=== PATIENT | male | born 1940 | race Caucasian/White ===

== ENCOUNTER 2017-02-04 11:42 | Outpatient (CLI) | payer MEDICARE, OTHER ==
[2016-02-17 19:11] VITALS: BP 97/65
== END 2017-02-04 11:43 ==
LOC: CARD 11:42
PROVIDERS: ATTEND Internal Medicine Cardiovascular Disease
DX: I25.10 Atherosclerotic heart disease of native coronary artery without angina pectoris (principal); E78.5 Hyperlipidemia, unspecified; I10 Essential (primary) hypertension; G47.30 Sleep apnea, unspecified
CPT/HCPCS: G0463

== ENCOUNTER 2017-10-04 21:12 | Emergency (ER) | payer MEDICARE, OTHER ==
--- NOTE | 2017-10-04 21:28 | ED Physician Documentation ---
General Adult - HISTORIAN Historian: patient - HPI Chief Complaint: General Adult (low BP) Additional Information: Patient states that this AM he started to not feel well. Has had a mild headache. Patient was seen by his son and had his BP checked and it was low in the 60-70 systolic. Has been having some mild lightheadness. Is on BP medication. No chest pain or pressure noted. Onset: hours (This AM) Timing: still present Further Comments: no - ROS CONST: denies: fever, chills EYES/ENT: none CVS/RESP: none MS/SKIN/LYMPH: denies: calf pain NEURO/PSYCH: headache, dizziness. denies: fainting, tingling, numbness, difficulty walking - PAST HX Past History: COPD, hypertension, other (hypothyroidism) Other History: other (cerebral palsy, Rectal cancer, KRISHNA, CAD) Surgeries/Procedures: other (AAA repair) Immunizations: referred to PCP Allergies/Adverse Reactions: Allergies Allergy/AdvReac Type Severity Reaction Status Date / Time morphine Allergy Verified 10/04/17 21:32 Home Medications: Ambulatory Orders Medication Instructions Recorded Levothyroxine Sodium [Synthroid] 25 mcg PO 0700 02/17/16 Montelukast Sodium [Singulair] 10 mg PO HS 02/17/16 Ondansetron HCl Rapdis [Zofran Odt] 4 mg PO Q6 PRN #30 tab 02/17/16 Primidone [Mysoline] 50 mg PO TID 02/17/16 - SOCIAL HX Smoking History: non-smoker Alcohol Use: none Drug Use: none - FAMILY HX Family History: No - VITAL SIGNS Vital Signs: Vital Signs Temp Pulse Resp BP Pulse Ox 97/65 02/17/16 19:07 - REVIEWED ASSESSMENTS Nursing Assessment Reviewed: Yes Vitals Reviewed: Yes Progress - Progress Progress: 22:52 Patient states that he is feeling better. BP114/67 General Adult Physical Exam - PHYSICAL EXAM GENERAL APPEARANCE: mild distress NECK: normal inspection, thyroid normal, supple RESPIRATORY: no resp distress, chest non-tender, breath sounds normal. No: wheezes, rales, rhonchi CVS: reg rate & rhythm, heart sounds normal, equal pulses, no murmur, no gallop ABDOMEN: soft, no organomegaly, normal bowel sounds, no abdominal bruit, no distension, non-tender BACK: normal inspection SKIN: warm/dry, normal color EXTREMITIES: non-tender, normal range of motion NEURO: oriented X3, CN's nml as tested, mood/affect nml, cognition normal Discharge Clincal Impression: Dehydration, Hypotension Referrals: Alexus Sanchez MD [Primary Care Provider] - 2 Days Additional Instructions: It appears that you are dehydrated some. Try to drink more fluids. Do not take your blood pressure medication tomorrow. Try to make an appointment to see Dr Sanchez within the next two weeks. If you have any further problems to return tot he ED or be seen in clinic. Condition: Stable Disposition: 01 HOME, SELF-CARE Decision to Admit: NO Date of Decison to Admit: 10/04/17 Decision Time: 22:53
[2017-10-04] MEDS ORDERED: 0.9 % SODIUM CHLORIDE 1,000 ML IV ONE (22:21)
[2017-10-04 22:26] LABS: BASOPHILS % 0.5 (0.0-1.5); EOSINOPHILS % 3.1 % (0.0-6.8); MEAN CORPUSCULAR HEMOGLOBIN 29.8 pg (28.0-34.0); MEAN CORPUSCULAR VOLUME 86.3 fl (80.0-100.0); MONOCYTES % 7.3 % (0.0-11.0); NEUTROPHILS # 4.6 # k/uL (1.4-7.7)
[2017-10-04] MEDS ORDERED: 0.9 % SODIUM CHLORIDE 1,000 ML IV SCH (22:30)
[2017-10-05 00:01] VITALS: BP 144/101
== END 2017-10-04 23:00 | disposition home or self-care (01) ==
LOC: ED 21:12
DX: E86.0 Dehydration (principal); I95.9 Hypotension, unspecified
CPT/HCPCS: 80053; 84443; 85025; 96360; 99283; J7030; S1016

== ENCOUNTER 2018-02-01 13:43 | Emergency (ER) | payer MEDICARE, OTHER ==
--- NOTE | 2018-02-01 14:05 | ED Physician Documentation ---
General Adult - HISTORIAN Historian: patient, child (sons) - HPI Stated Complaint: passed out Chief Complaint: General Adult Additional Information: Had been sitting in kitchen visiting with son. Went to bathroom where he urinated, returned to the living room, and sank to the foot stool. Eyes were closed. Son placed him on couch and he slumped over. Denies fall to floor and injury. This has happened before due to low blood sugar, so son fed him and brought him to ER. Similar episode a month ago and thought to be dehydrated at that time. FSG in ER today, 56. Given gilmar crackers, mild, sandwich. Per sons, pt does not drink enough water. Does drink two 20 ounce Cokes daily. At time of exam, has aching QUAN above R eye which began afte he passed out today. His legs feel weak. No other modifying factors or associated signs. - ROS CONST: no problems (except as above) - PAST HX Past History: other (KRISHNA, rectal cancer, cerebral palsy) Surgeries/Procedures: cardiac stent, other (AAA repair) Allergies/Adverse Reactions: Allergies Allergy/AdvReac Type Severity Reaction Status Date / Time morphine Allergy Verified 02/01/18 14:07 Home Medications: Ambulatory Orders Medication Instructions Recorded Levothyroxine Sodium [Synthroid] 25 mcg PO 0700 02/17/16 Montelukast Sodium [Singulair] 10 mg PO HS 02/17/16 Primidone [Mysoline] 50 mg PO TID 02/17/16 - SOCIAL HX Smoking History: non-smoker - FAMILY HX Family History: No - VITAL SIGNS Vital Signs: Vital Signs Temp Pulse Resp BP Pulse Ox 144/101 10/04/17 23:00 - REVIEWED ASSESSMENTS Nursing Assessment Reviewed: Yes Vitals Reviewed: Yes Progress - Progress Progress: 1500, pink, feels better, except legs jumpy. Has not taken midday Requip. Labs reassuring, including serial Trop I's. EKG shows sinus rhythm, 61 BPM, no ischemic changes. Report Submission Date: Feb 01, 2018 2:51:17 PM CDT Patient Study Name: KAVEH NGUYEN Date: Feb 01, 2018 2:37:43 PM CDT Modality Type: DX Gender: M Description: CHEST : 42 Institution: [facility] Physician: BHARTI WYNN - ER Chest, AP portable History: Syncope Findings: No infiltrate, effusion or pneumothorax is a present. Heart size, mediastinum and pulmonary vascularity are normal. Impression: No active pulmonary disease. Electronically signed on Feb 01, 2018 2:51:17 PM CDT by: Denver Bell General Adult Physical Exam - PHYSICAL EXAM GENERAL APPEARANCE: no distress EENT: eye inspection normal, ENT inspection normal NECK: normal inspection, supple RESPIRATORY: no resp distress, chest non-tender, breath sounds normal CVS: reg rate & rhythm, heart sounds normal ABDOMEN: soft, normal bowel sounds, no distension, non-tender BACK: normal inspection, no CVA tenderness, other (no vertebral tenderness) SKIN: warm/dry, normal color, other (no bruising noted) EXTREMITIES: non-tender, no evidence of injury NEURO: CN's nml as tested, motor nml (for this patient), sensation nml, mood/affect nml, cognition normal Discharge Clincal Impression: Hypoglycemia Episode of syncope Qualifiers: Syncope type: unspecified Qualified Code(s): R55 - Syncope and collapse Referrals: Alexus Sanchez MD [Primary Care Provider] - 2 Days Additional Instructions: Make an appointment to see Dr. Sanchez later this week for further evaluation. It would be helpful if you could check your blood sugar twice a day for a few days and take those results with you when you see Dr. Sanchez. Your lab results, EKG and chest x ray today were reassuring. Drink more water. Return to the ER if your condition worsens. Continue your usual medications. Condition: Good Disposition: 01 HOME, SELF-CARE Decision to Admit: NO Decision Time: 16:40
[2018-02-01 14:29] LABS: BASOPHILS % 0.6 (0.0-1.5); EOSINOPHILS % 3.7 % (0.0-6.8); MEAN CORPUSCULAR HEMOGLOBIN 28.2 pg (28.0-34.0); MEAN CORPUSCULAR VOLUME 86.5 fl (80.0-100.0); MONOCYTES % 8.9 % (0.0-11.0); NEUTROPHILS # 3.5 # k/uL (1.4-7.7)
[2018-02-01 14:39] LABS: eGFR (African) > 60; eGFR (Non-African) > 60
[2018-02-01] MEDS ORDERED: 0.9 % SODIUM CHLORIDE 1,000 ML IV ONE (15:22)
[2018-02-01] MEDS ORDERED: 0.9 % SODIUM CHLORIDE 1,000 ML IV SCH (15:30)
--- NOTE | 2018-02-01 15:59 | Diagnostic Imaging Report ---
BHARTI WYNN [facility] [address] [facility] [address] [place] [address]. [id number] Report Submission Date: Feb 01, 2018 2:51:17 PM CDT Patient Study Name: KAVEH NGUYEN Date: Feb 01, 2018 2:37:43 PM CDT Modality Type: DX Gender: M Description: CHEST : 42 Institution: [facility] Physician: BHARTI WYNN Chest, AP portable History: Syncope Findings: No infiltrate, effusion or pneumothorax is a present. Heart size, mediastinum and pulmonary vascularity are normal. Impression: No active pulmonary disease. Electronically signed on Feb 01, 2018 2:51:17 PM CDT by: Denver PEDRAZA
[2018-02-01] MEDS ORDERED: rOPINIRole HCL 1 MG TABLET ONE (16:15)
[2018-02-01] MEDS ORDERED: rOPINIRole HCL 1 MG TABLET PO SCH (17:00)
[2018-02-01 17:04] VITALS: BP 132/76
== END 2018-02-01 17:01 | disposition home or self-care (01) ==
LOC: ED 13:43
DX: R55 Syncope and collapse (principal); E16.2 Hypoglycemia, unspecified
CPT/HCPCS: 71045; 80053; 81002; 84484; 85025; 93005; J7030; 96365; 96366; 99284; S1016

== ENCOUNTER 2018-04-29 15:25 | Outpatient (CLI) | payer MEDICARE, MEDICAID | END 2018-04-29 15:30 | disposition home or self-care (01) | LOC: LAB 15:25 | PROVIDERS: ATTEND Family Medicine | DX: E03.9 Hypothyroidism, unspecified (principal) | CPT/HCPCS: 84443 ==

== ENCOUNTER 2018-06-11 12:06 | Outpatient (CLI) | payer MEDICAID, MEDICARE ==
[2018-06-11 14:54] LABS: eGFR (Non-African) > 60
--- NOTE | 2018-06-12 05:04 | Diagnostic Imaging Report ---
JONG COOPER [facility] [address] [facility] [address] [address] Report Submission Date: Jun 11, 2018 1:07:28 PM DUCT LAYER HELPER Patient Study Name: KAVEH NGUYEN Date: Jun 11, 2018 12:17:42 PM DUCT LAYER HELPER Modality Type: DX Gender: M Description: SHOULDER : 44 Institution: [facility] Physician: JONG COOPER Examination: Plain film left shoulder History: LEFT SHOULDER, PAIN IN LEFT SHOULDER AFTER FALL ABOUT 6 MONTHS AGO. PT STATES PAIN WORSE IN THE LAST MONTH. PT STATES HX OF MS (Hx) Comparison exams: None provided Findings: 4 views of the shoulder demonstrates osteopenia. Articular degenerative changes. Humeral head and glenoid ossific spurs. Slight widening of the humeral acromial space. Impression: Osteopenia and degenerative changes. If suspect rotator cuff abnormality, consider obtaining MRI to further evaluate. Electronically signed on Jun 11, 2018 1:07:28 PM DUCT LAYER HELPER by: Zoran PEDRAZA
== END 2018-06-11 12:07 ==
LOC: LAB 12:06
PROVIDERS: ATTEND Family Medicine
DX: E78.2 Mixed hyperlipidemia (principal); M85.812 Other specified disorders of bone density and structure, left shoulder; G89.29 Other chronic pain; M25.512 Pain in left shoulder
CPT/HCPCS: 36415; 73030; 80053; 80061

== ENCOUNTER 2018-09-11 06:44 | Emergency (ER) | payer MEDICARE ==
--- NOTE | 2018-09-11 06:59 | ED Physician Documentation ---
General Adult - HISTORIAN Historian: patient - HPI Stated Complaint: vomiting x 3 after cough Chief Complaint: General Adult Onset: hours (6) Timing: better Severity: mild Further Comments: yes (He states he started to cough around 1 am feels he had a fever. Then he did have 3 episodes of coughing which then he had vomiting after x 1. He does have COPD - he does wear home oxygen at night time only. He does not have home nebulizer. He denies any other complaints. He has been eating and drinking normally. He does not feel nausea. No diarrhea. No sick contacts) - ROS CONST: no problems EYES/ENT: none CVS/RESP: cough. denies: shortness of breath GI/: none, vomiting MS/SKIN/LYMPH: none NEURO/PSYCH: denies: headache, fainting - PAST HX Past History: COPD Allergies/Adverse Reactions: Allergies Allergy/AdvReac Type Severity Reaction Status Date / Time morphine Allergy Verified 09/11/18 07:07 Home Medications: Ambulatory Orders Medication Instructions Recorded Montelukast Sodium [Singulair] 10 mg PO HS 02/17/16 Primidone [Mysoline] 50 mg PO TID 02/17/16 - SOCIAL HX Smoking History: non-smoker Alcohol Use: none Drug Use: none - FAMILY HX Family History: No - VITAL SIGNS Vital Signs: Vital Signs Temp Pulse Resp BP Pulse Ox 132/76 02/01/18 17:01 - REVIEWED ASSESSMENTS Nursing Assessment Reviewed: Yes Vitals Reviewed: Yes Progress - Progress Progress: 0800: Discussed case with Brie BERG due to Laura out of office. DG 0810: Discussed results with pt and grandson. Will attempt to treat from home. O xygen at all times x 7 days. Also outpt meds. Follow up with Dr Sanchez Friday or return to ER for any sooner concerns DG ED Results Lab/Radiology - Radiology Radiology Impressions: HISTORY: 78-year-old male with cough COMPARISON: 02/01/2018 TECHNIQUE: Single portable AP view of the chest was performed. FINDINGS: There is diffuse prominence of the interstitial markings, asymmetrically more prominent on the right. Elevation of the right hemidiaphragm is re-identified. No pneumothorax or consolidative infiltrates. There are calcified granulomas in both lungs. The heart is not enlarged. IMPRESSION: Diffuse prominence of the interstitial markings suggestive of CHF, asymmetrically more prominent on the right. Less likely there could be a developing pneumonia in the right lung base. Electronically signed on Sep 11, 2018 7:42:24 AM ACCOUNTANT CERTIFIED PUBLIC by: Hernán Yi General Adult Physical Exam - PHYSICAL EXAM GENERAL APPEARANCE: no distress EENT: eye inspection normal, ENT inspection normal, pharynx normal, no signs of dehydration, TM's nml NECK: normal inspection RESPIRATORY: wheezes CVS: reg rate & rhythm, heart sounds normal, no murmur, PMI nml ABDOMEN: soft, normal bowel sounds, no distension BACK: normal inspection, no CVA tenderness SKIN: warm/dry, normal color EXTREMITIES: non-tender NEURO: oriented X3 Discharge Clincal Impression: COPD exacerbation Pneumonia Qualifiers: Pneumonia type: due to unspecified organism Laterality: right Lung location: lower lobe of lung Qualified Code(s): J18.1 - Lobar pneumonia, unspecified organism Referrals: Alexus Sanchez MD [Primary Care Provider] - 2 Days Comments: 1. Azithromycin - as directed 2. Prednisone 20 mg take 1 by mouth dailyl 3. Use inhalers 4. Use oxygen all day x 5-[address] Sanchez and set up an appt Friday 6. Return to ER for any concerns Condition: Stable Disposition: 01 HOME, SELF-CARE Decision to Admit: NO Date of Decison to Admit: 09/11/18 Decision Time: 08:18
[2018-09-11] MEDS: 0.9 % SODIUM CHLORIDE 1,000 ML IV ONE (07:20)
[2018-09-11] MEDS: IPRATROPIUM/ALBUTEROL SULFATE 3 ML AMPUL.NEB NEB ONE (07:32)
[2018-09-11 07:35] LABS: BASOPHILS % 1.3 (0.0-1.5); EOSINOPHILS % 4.7 % (0.0-6.8); MEAN CORPUSCULAR HEMOGLOBIN 25.2 pg (28.0-34.0); MONOCYTES % 5.2 % (0.0-11.0)
[2018-09-11 07:49] LABS: eGFR (Non-African) 59
[2018-09-11 08:34] VITALS: BP 139/86
--- NOTE | 2018-09-12 05:27 | Diagnostic Imaging Report ---
JAXON BECKMAN [facility] [address] [facility] [address] Report Submission Date: Sep 11, 2018 7:42:24 AM BLEACHER LARD Patient Study Name: KAVEH NGUYEN Date: Sep 11, 2018 7:07:10 AM BLEACHER LARD Modality Type: DX Gender: M Description: CHEST 1VIEW : 42 Institution: [facility] Physician: JAXON BECKMAN HISTORY: 78-year-old male with cough COMPARISON: 02/01/2018 TECHNIQUE: Single portable AP view of the chest was performed. FINDINGS: There is diffuse prominence of the interstitial markings, asymmetrically more prominent on the right. Elevation of the right hemidiaphragm is re-identified. No pneumothorax or consolidative infiltrates. There are calcified granulomas in both lungs. The heart is not enlarged. IMPRESSION: Diffuse prominence of the interstitial markings suggestive of CHF, asymmetrically more prominent on the right. Less likely there could be a developing pneumonia in the right lung base. Electronically signed on Sep 11, 2018 7:42:24 AM BLEACHER LARD by: Hernán PEDRAZA
== END 2018-09-11 08:34 | disposition home or self-care (01) ==
LOC: ED 06:44
DX: J44.1 Chronic obstructive pulmonary disease with (acute) exacerbation (principal); J18.1 Lobar pneumonia, unspecified organism; Z99.81 Dependence on supplemental oxygen
CPT/HCPCS: 36415; 71045; 80053; 83880; 85025; 87400; 94640; 99284; J7030; S1016

== ENCOUNTER 2019-01-06 19:26 | Emergency (ER) | payer MEDICARE, MEDICAID ==
--- NOTE | 2019-01-06 19:47 | ED Physician Documentation ---
Upper Respiratory Symptoms - HISTORIAN Historian: patient - HPI Chief Complaint: Cough/ Upper Respiratory Additional Information: Patient is a 78-year-old male that presents to the ER with c/o cough and congestion. Patient states that he was in [place] for a few days and got back on Friday (2 days ago). Symptoms started on Friday with cough- he denies any f/c/n/v/d. Onset: days ago Duration: intermittent episodes Context: denies: multiple patients Severity: mild Associated Symptoms: productive cough. denies: fever, chills, shortness of breath Worsened by Deep Breath: No - ROS CONST/EYES: denies: weakness CVS/RESP: none LYMPH: denies: leg swelling, ankle swelling GI/: none NEURO/PSYCH: denies: dizziness MS/SKIN: denies: muscle aches - PAST HX Lung Disease: COPD, other (KRISHNA, CP) PE Risk Factors: hypertension, other (HLD, Hypothyroid, CAD) Other History: other (malignant neoplasm of rectum) Surgeries/Procedures: other (AAA 2011, knee, CTR, neck, cataracts) Immunizations: UTD Allergies/Adverse Reactions: Allergies Allergy/AdvReac Type Severity Reaction Status Date / Time morphine Allergy Verified 01/06/19 20:31 Home Medications: Ambulatory Orders Medication Instructions Recorded Primidone [Mysoline] 50 mg PO TID 02/17/16 Albuterol Sulfate [Proair HFA] 1 inh IH PRN PRN 12/29/18 Aspirin [Aspirin EC] 81 mg PO DAILY 12/29/18 Tizanidine HCl [Zanaflex] 4 mg PO HS 12/29/18 Azithromycin [Zithromax] 250 mg PO DAILY #4 tablet 01/06/19 predniSONE [Deltasone] 40 mg PO DAILY 5 Days #10 tablet 01/06/19 - SOCIAL HX Smoking History: quit greater than 1 year Alcohol Use: rarely Drug Use: none - FAMILY HX Family History: none - VITAL SIGNS Vital Signs: Vital Signs Temp Pulse Resp BP Pulse Ox 98.9 F 91 H 20 172/99 94 01/06/19 19:27 01/06/19 20:30 01/06/19 19:27 01/06/19 19:27 01/06/19 20:30 - REVIEWED ASSESSMENTS Nursing Assessment Reviewed: Yes Vitals Reviewed: Yes ED Results Lab/Radiology - Lab Results Lab Results: Lab Results 01/06/19 01/06/19 19:46 19:46 WBC 6.90 K/ul K/ul (4.00-12.00) RBC 5.11 M/ul M/ul (3.90-5.20) Hgb 12.3 g/dL g/dL (12.0-18.0) Hct 39.0 % % (37.0-53.0) MCV 76.0 fl L fl (80.0-100.0) MCH 24.2 pg L pg (28.0-34.0) MCHC 31.7 g/dL g/dL (30.0-36.0) RDW 18.1 % H % (11.3-14.3) Plt Count 187 K/mm3 K/mm3 (130-400) Neut % (Auto) 78.1 % % (39.0-79.0) Lymph % (Auto) 9.0 % L % (16.0-50.0) [place] % (Auto) 9.5 % % (0.0-11.0) Eos % (Auto) 3.1 % % (0.0-6.8) Baso % (Auto) 0.3 % % (0.0-1.5) Neut # (Auto) 5.4 # k/uL # k/uL (1.4-7.7) Lymph # (Auto) 0.6 # k/uL # k/uL (0.6-4.0) [place] # (Auto) 0.7 # k/uL # k/uL (0.0-0.9) Eos # (Auto) 0.2 # k/uL # k/uL (0.0-0.6) Baso # (Auto) 0.0 # k/uL # k/uL (0.0-0.5) Sodium 139 mmol/L mmol/L (137-145) Potassium 4.2 mmol/L mmol/L (3.5-5.1) Chloride 102 mmol/L mmol/L (98-107) Carbon Dioxide 27 mmol/L mmol/L (22-30) BUN 11 mg/dL mg/dL (9-20) Creatinine 1.18 mg/dL mg/dL (0.66-1.25) Est GFR ( Amer) > 60 (60 - ) Est GFR (Non-Af Amer) > 60 (60 - ) Glucose 106 mg/dL mg/dL (74-106) Calcium 8.7 mg/dL mg/dL (8.4-10.2) Total Bilirubin 0.6 mg/dL mg/dL (0.2-1.3) AST 53 U/L H U/L (15-46) ALT 36 U/L U/L (13-69) Alkaline Phosphatase 98 U/L U/L (38-126) Total Protein 6.8 g/dL g/dL (6.3-8.2) Albumin 4.0 g/dL g/dL (3.5-5.0) - Radiology Radiology Impressions: Chest, PA and lateral History: Cough, congestion, shortness of breath Findings: There is no infiltrate, effusion or pneumothorax. Heart size is normal. Pulmonary vascular congestion is present. There is calcification in the thoracic aorta. Impression: Atherosclerosis. Pulmonary vascular congestion. - Orders Orders: ED Orders Category Date Time Status Continuous EKG monitoring Q30M Care 01/06/19 19:46 Active Continuous Pulse Oximetry Q30M Care 01/06/19 19:[address] IV Lock 1T Care 01/06/19 19:46 Active CHEST 2VIEW [RAD] Stat Exams 01/06/19 Completed CBC/PLATELET/DIFF Routine Lab 01/06/19 19:46 Completed CMP Routine Lab 01/06/19 19:46 Completed Azithromycin [Zithromax] Med 01/06/19 20:30 Once 500 mg PO NOW ONE predniSONE [Deltasone] Med 01/06/19 20:30 Once 40 mg PO NOW ONE Oxygen Daily Oxygen 01/06/19 20:00 Ordered Upper Respiratory Symptoms - EXAM General Appearance: alert, mild distress EENT: eyes nml inspection, nml ENT inspection Neck: normal inspection, supple Respiratory: speaks full sentences, rhonchi Abdomen: nml bowel sounds CVS: heart sounds normal, equal pulses Skin: color nml, no rash, warm,dry Extremities: non-tender Neuro/Psych: oriented x3, neuro intact Discharge Clincal Impression: Pulmonary congestion Prescriptions: Azithromycin [Zithromax] 250 mg PO DAILY #4 tablet predniSONE [Deltasone] 40 mg PO DAILY 5 Days #10 tablet Referrals: Alexus Sanchez MD [Primary Care Provider] - 2 Days Additional Instructions: Take Zithromax 250 mg daily for 4 days (loading dose given in ER) Prednisone 40 mg daily for 5 days Follow up with PCP next week for re-evaluation Condition: Good Disposition: 01 HOME, SELF-CARE Decision to Admit: NO Decision Time: 20:35
[2019-01-06 20:08] LABS: BASOPHILS % 0.3 % (0.0-1.5); NEUTROPHILS # 5.4 # k/uL (1.4-7.7)
[2019-01-06 20:24] LABS: eGFR (Non-African) > 60
--- NOTE | 2019-01-06 20:26 | Diagnostic Imaging Report ---
JJ EVANGELISTA [facility] [address] [facility] [address] [address] Report Submission Date: Jan 06, 2019 8:16:30 PM CDT Patient Study Name: KAVEH NGUYEN Date: Jan 06, 2019 7:49:15 PM CDT Modality Type: DX Gender: M Description: CHEST 2VIEW : 44 Institution: [facility] Physician: JJ EVANGELISTA Chest, PA and lateral History: Cough, congestion, shortness of breath Findings: There is no infiltrate, effusion or pneumothorax. Heart size is normal. Pulmonary vascular congestion is present. There is calcification in the thoracic aorta. Impression: Atherosclerosis. Pulmonary vascular congestion. Electronically signed on Jan 06, 2019 8:16:30 PM CDT by: Denver PEDRAZA
[2019-01-06] MEDS ORDERED: AZITHROMYCIN 250 MG TABLET PO ONE (20:30)
[2019-01-06] MEDS ORDERED: predniSONE 20 MG TABLET PO ONE (20:30)
[2019-01-06 21:40] VITALS: BP 132/58
== END 2019-01-06 21:10 | disposition home or self-care (01) ==
LOC: ED 19:26
DX: I27.0 Primary pulmonary hypertension (principal)
CPT/HCPCS: 71046; 80053; 85025; 99282; 99284; S1016